=== PATIENT | female | born 1995 | race Hispanic/Latino ===

== ENCOUNTER 2022-01-21 11:22 | Outpatient (CLI) | payer OTHER | END 2022-01-21 11:23 | disposition home or self-care (01) | LOC: LABBT 11:22 | PROVIDERS: ATTEND Specialist | DX: U07.1 COVID-19 (principal); C50.919 Malignant neoplasm of unspecified site of unspecified female breast | CPT/HCPCS: 87811 ==

== ENCOUNTER 2022-02-01 08:01 | Day surgery (SDC) | payer OTHER ==
[2022-01-28 13:46] VITALS: BMI 71.5
[2022-02-01] MEDS ORDERED: Acetaminophen 500 MG TAB ONE (08:40)
[2022-02-01] MEDS ORDERED: Ketorolac Tromethamine 30 MG/ML VIAL ONE (08:40)
[2022-02-01] MEDS ORDERED: Bupivacaine/Epinephrine 0.25% 30 ML VIAL ONE (10:29)
[2022-02-01] MEDS ORDERED: Midazolam HCl 2 mg/2 ml Vial ONE (10:31)
[2022-02-01] MEDS ORDERED: Ketamine 50 MG/ML (10ML VIAL) ONE (10:32)
[2022-02-01] MEDS ORDERED: Sodium Chloride 0.9% 100 ML ONE (10:40)
[2022-02-01] MEDS ORDERED: CEFAZOLIN 2 GM VIAL ONE (10:40)
[2022-02-01] MEDS ORDERED: Lidocaine 1% MPF 2 ML VIAL ONE ×2 (10:45→10:47)
[2022-02-01] MEDS ORDERED: Ondansetron PF 4 MG/2 ML Vial ONE (11:03)
== END 2022-02-01 13:25 | disposition home or self-care (01) ==
LOC: SDC 08:01
PROVIDERS: ATTEND Specialist
PROC: 0JH60WZ Insertion of Totally Implantable Vascular Access Device into Chest Subcutaneous Tissue and Fascia, Open Approach (ICD-10-PCS; principal; 2022-02-01)
PROC: 02HV33Z Insertion of Infusion Device into Superior Vena Cava, Percutaneous Approach (ICD-10-PCS; principal; 2022-02-01)
DX: C50.911 Malignant neoplasm of unspecified site of right female breast (principal); C77.3 Secondary and unspecified malignant neoplasm of axilla and upper limb lymph nodes; E66.8 Other obesity; Z68.45 Body mass index [BMI] 70 or greater, adult; Z17.0 Estrogen receptor positive status [ER+]
CPT/HCPCS: 71045; C1788; J0690; J1642; J1885; J2250; J2405; J3490

== ENCOUNTER 2022-06-09 14:48 | Outpatient (CLI) | payer OTHER | END 2022-06-09 14:49 | disposition home or self-care (01) | LOC: DTY/OP 14:48 | PROVIDERS: ATTEND Specialist | DX: C50.919 Malignant neoplasm of unspecified site of unspecified female breast (principal); R63.4 Abnormal weight loss | CPT/HCPCS: 97802 ==

== ENCOUNTER 2022-06-21 12:36 | Outpatient (CLI) | payer OTHER ==
[2022-06-21 13:47] LABS: Mean Corpuscular HGB CONC 33.7 g/dL (32.0-36.0); Mean Corpuscular Hemoglobin 29.6 pg (27.0-33.0); Mean Corpuscular Volume 87.9 fl (81.6-98.3); Mean Platelet Volume 11.5 fl (7.4-10.4); Platelet Count 408 10x3/uL (150-450); RBC Distribution Width 17.9 % (11.5-14.5); Red Blood Cell (RBC) Count 4.39 10x6/uL (3.90-5.03); White Blood Cell (WBC) Count 7.4 10x3/uL (3.5-10.5)
[2022-06-21 13:57] LABS: BHCG - Serum Negative (NEGATIVE); Pregs Control Background? CLEAR/WHITE (CLR/WHITE); Pregs Control Bar Appear? YES (CONTROL BAR)
[2022-06-21 14:03] LABS: Anion Gap 15 mmol/L (10-20); BUN (Urea Nitrogen) 9 mg/dL (7.0-18.7); Calc. Creatinine Clearance 0 mL/min (70-130); Calcium 9.1 mg/dL (7.8-10.44); Carbon Dioxide 23 mmol/L (22-29); Chloride 109 mmol/L (98-107); Estimated GFR 124; Glucose 88 mg/dL (70-105); Potassium 4.1 mmol/L (3.5-5.1); Sodium 143 mmol/L (136-145)
[2022-06-21 14:36] LABS: Band 1 % (5-11); Eosinophils 4 % (0-10); Lymphocytes 22 % (21-51); Monocytes 16 % (0-10)
[2022-06-21 14:39] LABS: Large Platelets SLIGHT; MDiff Complete? YES; Platelet Morphology Comment Appears Increased; RBC Morphology Normal
== END 2022-06-21 12:37 | disposition home or self-care (01) ==
LOC: LABBT 12:36
PROVIDERS: ATTEND Specialist
DX: Z01.812 Encounter for preprocedural laboratory examination (principal); C50.919 Malignant neoplasm of unspecified site of unspecified female breast
CPT/HCPCS: 80048; 84703; 85025

== ENCOUNTER 2022-06-23 08:16 | Day surgery (SDC) | payer OTHER ==
[2022-06-22 09:10] VITALS: BMI 69.9
[2022-06-23] MEDS ORDERED: Bupivacaine/Epinephrine 0.25% 30 ML VIAL ONE (08:49)
[2022-06-23] MEDS ORDERED: Ketorolac Tromethamine 30 MG/ML VIAL ONE (08:50)
[2022-06-23] MEDS ORDERED: Acetaminophen 500 MG TAB ONE (08:50)
[2022-06-23] MEDS ORDERED: Sodium Chloride 0.9% 100 ML ONE (08:56)
[2022-06-23] MEDS ORDERED: CEFAZOLIN 2 GM VIAL ONE (08:56)
[2022-06-23] MEDS ORDERED: Midazolam HCl 2 mg/2 ml Vial ONE (09:01)
[2022-06-23] MEDS ORDERED: Scopolamine 1.5 mg/72 hour Patch ONE (09:10)
[2022-06-23] MEDS ORDERED: Fentanyl 250 MCG/5 ML VIAL ONE ×2 (09:14→10:35)
[2022-06-23] MEDS ORDERED: PROPOFOL 200 MG/20 ML VIAL ONE (09:15)
[2022-06-23] MEDS ORDERED: Succinylcholine Chloride 100 MG/5 ML SYRINGE FS ONE (09:15)
[2022-06-23] MEDS ORDERED: Glycopyrrolate 0.2 MG/ML 5 ML SYRINGE ONE (09:15)
[2022-06-23] MEDS ORDERED: Ondansetron PF 4 MG/2 ML Vial ONE (09:15)
[2022-06-23] MEDS ORDERED: Dexamethasone 20 MG/5 ML VIAL ONE (09:15)
[2022-06-23] MEDS ORDERED: NEOSTIGMINE 3 MG/3 ML SYR 3 MG/3 ML SYRINGE ONE (09:15)
[2022-06-23] MEDS ORDERED: Lidocaine 1% PF 5 ML VIAL ONE (09:15)
[2022-06-23] MEDS ORDERED: Rocuronium Bromide 10 MG/ML (10ML VIAL) ONE (09:15)
[2022-06-23] MEDS ORDERED: Metoclopramide HCl 10 MG/2 ML VIAL ONE (09:15)
== END 2022-06-23 14:55 | disposition home or self-care (01) ==
LOC: SDC 08:16
PROVIDERS: ATTEND Specialist
PROC: 07T50ZZ Resection of Right Axillary Lymphatic, Open Approach (ICD-10-PCS; principal; 2022-06-23)
DX: C77.3 Secondary and unspecified malignant neoplasm of axilla and upper limb lymph nodes (principal); C50.911 Malignant neoplasm of unspecified site of right female breast; E66.01 Morbid (severe) obesity due to excess calories; Z68.44 Body mass index [BMI] 60.0-69.9, adult; Z17.0 Estrogen receptor positive status [ER+]; Z79.818 Long term (current) use of other agents affecting estrogen receptors and estrogen levels
CPT/HCPCS: 88305; 88307; C1776; J1100; J1642; J1885; J2250; J2405; J2704; J2765; J3010; J3490